=== PATIENT | male | born 1980 | race Hispanic/Latino ===

== ENCOUNTER 2017-12-04 22:35 | Emergency (ER) | payer BC ==
[~2017-12-04] VITALS: Ht 175.3 cm; Wt 80.3 kg
[2017-12-04] MEDS ORDERED: DIPHTH/TETANUS/ACEL. PERTUSSIS 0.5 ML SYR IM ONE (23:15)
== END 2017-12-04 23:45 | disposition home or self-care (01) ==
LOC: FSED 22:35
DX: S01.111A Laceration without foreign body of right eyelid and periocular area, initial encounter (principal); Y93.66 Activity, soccer; Y92.322 Soccer field as the place of occurrence of the external cause